=== PATIENT | male | born 1995 | race Caucasian/White ===

== ENCOUNTER 2018-04-07 15:01 | Inpatient (IN) ==
[2018-04-07 16:41] LABS: Baso % (Auto) 0.4 % (0.0-2.0); Eos % (Auto) 0.2 % (0.0-4.0); Hemoglobin 14.9 gm/dL (13.0-17.0); Lymph # (Auto) 1.4 th/mm3 (1.0-4.8); Lymph % (Auto) 14.8 % (9.0-44.0); Mean Corpuscular HGB Conc 34.6 % (32.0-36.0); Mean Corpuscular Hemoglobin 31.9 pg (27.0-34.0); Mean Corpuscular Volume 92.4 fL (80.0-100.0); Mean Platelet Volume 10.4 fL (7.0-11.0); Mono # (Auto) 0.6 th/mm3 (0.0-0.9); Mono % (Auto) 6.2 % (0.0-8.0); Neut # (Auto) 7.7 th/mm3 (1.8-7.7); Neut % (Auto) 78.4 % (16.0-70.0); Platelet Count 184 th/mm3 (150-450); Red Blood Count 4.66 mil/mm3 (4.50-5.90); Red Cell Distribution Width 13.3 % (11.6-17.2); White Blood Count 9.8 th/mm3 (4.0-11.0)
[2018-04-07 17:00] LABS: Albumin 4.4 g/dL (3.4-5.0); Anion Gap 8 meq/L (5-15); Aspartate Aminotransferase 12 U/L (15-37); Blood Urea Nitrogen 15 mg/dL (7-18); Calcium 9.3 mg/dL (8.5-10.1); Carbon Dioxide 24.4 meq/L (21.0-32.0); Chloride 109 meq/L (98-107); Glomerular Filtration Rate Greater Than 89 mL/min (>89); Glucose,Random 108 mg/dL (74-106); Potassium 3.7 meq/L (3.5-5.1); Sodium 141 meq/L (136-145)
[2018-04-07 17:12] LABS: Alanine Aminotransferase 20 U/L (12-78); Alkaline Phosphatase 55 U/L (45-117); Thyroid Stimulating Hormone 0.691 uIU/mL (0.358-3.740); Total Protein 7.6 g/dL (6.4-8.2)
--- NOTE | 2018-04-07 18:31 | ED ---
HPI General Chief Complaint: Psychiatric Symptoms Stated Complaint: Psych Eval/NSPD Time Seen by Provider: 04/07/18 17:58 Source: patient Mode of arrival: ambulatory Limitations: no limitations History of Present Illness HPI Narrative: 22-year-old male, with history of bipolar disorder, presents to the emergency department under Frias act. According to the Frias act report the patient was setting multiple messages to his family telling them to enjoy the money and that he was going to kill himself. He was found in a hotel with 2 guns and his medication. He had no plan or intention to use the guns to do anything to himself. His plan was to overdose on his mood stabilizers. He reports suicidal ideation. Reports history of suicidal attempts by overdosing. Denies homicidal ideation. Denies auditory or visual hallucinations. Reports marijuana use. Denies other illicit drug use. Denies tobacco use. Reports alcohol use daily. Symptoms are moderate to severe in severity. Says this symptoms are aggravated by being part of his sickness. Onset unknown. Duration most likely chronic. No treatments tried. History of bipolar disorder. Denies other significant past medical history. No known allergies. Primary CARE providers Dr. Gale in [place]. Has no other medical complaints. Denies chest pain, shortness of breath, abdominal pain, nausea, vomiting, change in urine or stool. No other modifying factors or associated signs and symptoms. Related Data Home Medications Medication Instructions Recorded Confirmed divalproex [Depakote] 500 mg PO BID 04/07/18 04/07/18 levothyroxine 25 mcg PO DAILY 04/07/18 04/07/18 quetiapine 25 mg PO HS 04/07/18 04/07/18 Allergies Allergy/AdvReac Type Severity Reaction Status Date / Time No Known Allergies Allergy Verified 04/07/18 15:40 Review of Systems ROS: all other systems reviewed are negative [facility] Medical History Medical History Bipolar disorder (Acute) Hypothyroidism (Acute) Surgical History Surgical History History of surgery on arm (Acute) Social History Social History Substance History: Active Abuse Second Hand Smoke Exposure: No Smoking Status: Never smoker How Often Do You Have a Drink Containing Alcohol: 2 to 3 times a week Recent Travel in [facility] [place] within the Last 8 Weeks: No Recent Out of Country Travel within the Last 8 Weeks: No Substance Abuse Detail Marijuana: Substance Use Status: Active Route Used Substance Abuse: Inhalation Last Used: 04/07/18 Immunization History Tetanus Immunization: Unsure Exam Narrative Exam Narrative: GENERAL: Well-nourished, well-developed male patient, in no acute distress SKIN: Warm and dry. HEAD: Atraumatic. Normocephalic. EYES: Pupils equal and round. ENT: Mucosa pink and moist. NECK: Supple. Trachea midline. CARDIOVASCULAR: Regular rate and rhythm. No murmur appreciated. RESPIRATORY: No accessory muscle use. Clear to auscultation. Breath sounds equal bilaterally. GASTROINTESTINAL: Abdomen soft, non-tender, nondistended. Hepatic and splenic margins not palpable. Bowel sounds are active 4 quadrants. MUSCULOSKELETAL: No obvious deformities. No clubbing. No cyanosis. No edema. NEUROLOGICAL: Awake and alert. Oriented 3. No obvious cranial nerve deficits. Motor grossly within normal limits. Normal speech. Moves all extremities. 5/5 strength to all extremities. PSYCHIATRIC: No delusional thought processes. No hallucinations. Course Initial Documented Vital Signs Temperature 98.3 F 04/07/18 15:07 Pulse Rate 78 04/07/18 15:07 Blood Pressure 125/70 04/07/18 15:07 Pulse Oximetry 95 04/07/18 15:07 Last Documented Vital Signs Temperature 98.2 F 04/10/18 05:00 Pulse Rate 56 L 04/10/18 05:00 Respiratory Rate 16 04/10/18 05:00 Blood Pressure 106/60 04/10/18 05:00 Pulse Oximetry 98 04/10/18 05:00 Medical Decision Making [facility] Narrative Medical decision making narrative: Patient presents under a Frias act. Physical examination and vital signs are essentially unremarkable. Patient has no medical complaints to report. Psych screen has been ordered. If the laboratory results are unremarkable, the patient will be medically cleared for psychiatric evaluation and disposition. Medical Screen Exam Complete: Yes Emergency Medical Condition: Yes Differential Diagnosis Differential Diagnosis: Suicidal ideation, suicidal threat, bipolar disorder, medical clearance for psychiatric evaluation Lab Data Result diagrams: 04/07/18 15:12 04/09/18 08:36 Lab Results 04/07/18 04/07/18 04/07/18 Range/Units 15:12 15:12 15:12 WBC 9.8 (4.0-11.0) th/mm3 RBC 4.66 (4.50-5.90) mil/mm3 Hgb 14.9 (13.0-17.0) gm/dL Hct 43.0 (39.0-51.0) % MCV 92.4 (80.0-100.0) fL MCH 31.9 (27.0-34.0) pg MCHC 34.6 (32.0-36.0) % RDW 13.3 (11.6-17.2) % Plt Count 184 (150-450) th/mm3 MPV 10.4 (7.0-11.0) fL Neut % (Auto) 78.4 H (16.0-70.0) % Lymph % (Auto) 14.8 (9.0-44.0) % Waldo % (Auto) 6.2 (0.0-8.0) % Eos % (Auto) 0.2 (0.0-4.0) % Baso % (Auto) 0.4 (0.0-2.0) % Neut # (Auto) 7.7 (1.8-7.7) th/mm3 Lymph # (Auto) 1.4 (1.0-4.8) th/mm3 [place] # (Auto) 0.6 (0.0-0.9) th/mm3 Eos # (Auto) 0.0 (0.0-0.4) th/mm3 Baso # (Auto) 0.0 (0.0-0.2) th/mm3 WBC Differential . Differential Comment Auto diff final Sodium 141 (136-145) meq/L Potassium 3.7 (3.5-5.1) meq/L Chloride 109 H (98-107) meq/L Carbon Dioxide 24.4 (21.0-32.0) meq/L Anion Gap 8 (5-15) meq/L BUN 15 (7-18) mg/dL Creatinine 0.96 (0.60-1.30) mg/dL Estimated GFR Greater than 89 (>89) mL/min Random Glucose 108 H (74-106) mg/dL Hemoglobin A1c (4.3-6.0) % Calcium 9.3 (8.5-10.1) mg/dL Total Bilirubin 0.5 (0.2-1.0) mg/dL AST 12 L (15-37) U/L ALT 20 (12-78) U/L Alkaline Phosphatase 55 (45-117) U/L Total Protein 7.6 (6.4-8.2) g/dL Albumin 4.4 (3.4-5.0) g/dL Triglycerides (42-150) mg/dL Cholesterol (120-200) mg/dL LDL Cholesterol, Calc (0-99) mg/dL HDL Cholesterol (40.0-60.0) mg/dL Cholesterol/HDL Ratio Ratio TSH 0.691 (0.358-3.740) uIU/mL Salicylates Less than 1.7 L (2.8-20.0) mg/dL Urine Opiates Screen (Neg) Acetaminophen Less than 2.0 L (10.0-30.0) mcg/mL Ur Barbiturates Screen (Neg) Valproic Acid (50-100) mcg/mL Ur Amphetamines Screen (Neg) U Benzodiazepines Scrn (Neg) Urine Cocaine Screen (Neg) U Cannabinoids Screen (Neg) Serum Alcohol Less than 3 (0-5) mg/dL 04/07/18 04/08/18 04/09/18 Range/Units 20:10 17:25 08:36 WBC (4.0-11.0) th/mm3 RBC (4.50-5.90) mil/mm3 Hgb (13.0-17.0) gm/dL Hct (39.0-51.0) % MCV (80.0-100.0) fL MCH (27.0-34.0) pg MCHC (32.0-36.0) % RDW (11.6-17.2) % Plt Count (150-450) th/mm3 MPV (7.0-11.0) fL Neut % (Auto) (16.0-70.0) % Lymph % (Auto) (9.0-44.0) % [place] % (Auto) (0.0-8.0) % Eos % (Auto) (0.0-4.0) % Baso % (Auto) (0.0-2.0) % Neut # (Auto) (1.8-7.7) th/mm3 Lymph # (Auto) (1.0-4.8) th/mm3 [place] # (Auto) (0.0-0.9) th/mm3 Eos # (Auto) (0.0-0.4) th/mm3 Baso # (Auto) (0.0-0.2) th/mm3 WBC Differential Differential Comment Sodium 139 (136-145) meq/L Potassium 3.5 (3.5-5.1) meq/L Chloride 105 (98-107) meq/L Carbon Dioxide 24.1 (21.0-32.0) meq/L Anion Gap 10 (5-15) meq/L BUN 16 (7-18) mg/dL Creatinine 1.03 (0.60-1.30) mg/dL Estimated GFR 89 (>89) mL/min Random Glucose 127 H (74-106) mg/dL Hemoglobin A1c (4.3-6.0) % Calcium 9.1 (8.5-10.1) mg/dL Total Bilirubin (0.2-1.0) mg/dL AST (15-37) U/L ALT (12-78) U/L Alkaline Phosphatase (45-117) U/L Total Protein (6.4-8.2) g/dL Albumin (3.4-5.0) g/dL Triglycerides 153 H (42-150) mg/dL Cholesterol 203 H (120-200) mg/dL LDL Cholesterol, Calc 122 H (0-99) mg/dL HDL Cholesterol 50.3 (40.0-60.0) mg/dL Cholesterol/HDL Ratio 4.03 Ratio TSH (0.358-3.740) uIU/mL Salicylates (2.8-20.0) mg/dL Urine Opiates Screen Neg (Neg) Acetaminophen (10.0-30.0) mcg/mL Ur Barbiturates Screen Neg (Neg) Valproic Acid Less than 3 L (50-100) mcg/mL Ur Amphetamines Screen Neg (Neg) U Benzodiazepines Scrn Neg (Neg) Urine Cocaine Screen Neg (Neg) U Cannabinoids Screen Pos H (Neg) Serum Alcohol (0-5) mg/dL 04/09/18 Range/Units 08:36 WBC (4.0-11.0) th/mm3 RBC (4.50-5.90) mil/mm3 Hgb (13.0-17.0) gm/dL Hct (39.0-51.0) % MCV (80.0-100.0) fL MCH (27.0-34.0) pg MCHC (32.0-36.0) % RDW (11.6-17.2) % Plt Count (150-450) th/mm3 MPV (7.0-11.0) fL Neut % (Auto) (16.0-70.0) % Lymph % (Auto) (9.0-44.0) % Wal[place] % (Auto) (0.0-8.0) % Eos % (Auto) (0.0-4.0) % Baso % (Auto) (0.0-2.0) % Neut # (Auto) (1.8-7.7) th/mm3 Lymph # (Auto) (1.0-4.8) th/mm3 [place] # (Auto) (0.0-0.9) th/mm3 Eos # (Auto) (0.0-0.4) th/mm3 Baso # (Auto) (0.0-0.2) th/mm3 WBC Differential Differential Comment Sodium (136-145) meq/L Potassium (3.5-5.1) meq/L Chloride (98-107) meq/L Carbon Dioxide (21.0-32.0) meq/L Anion Gap (5-15) meq/L BUN (7-18) mg/dL Creatinine (0.60-1.30) mg/dL Estimated GFR (>89) mL/min Random Glucose (74-106) mg/dL Hemoglobin A1c 5.1 (4.3-6.0) % Calcium (8.5-10.1) mg/dL Total Bilirubin (0.2-1.0) mg/dL AST (15-37) U/L ALT (12-78) U/L Alkaline Phosphatase (45-117) U/L Total Protein (6.4-8.2) g/dL Albumin (3.4-5.0) g/dL Triglycerides (42-150) mg/dL Cholesterol (120-200) mg/dL LDL Cholesterol, Calc (0-99) mg/dL HDL Cholesterol (40.0-60.0) mg/dL Cholesterol/HDL Ratio Ratio TSH (0.358-3.740) uIU/mL Salicylates (2.8-20.0) mg/dL Urine Opiates Screen (Neg) Acetaminophen (10.0-30.0) mcg/mL Ur Barbiturates Screen (Neg) Valproic Acid (50-100) mcg/mL Ur Amphetamines Screen (Neg) U Benzodiazepines Scrn (Neg) Urine Cocaine Screen (Neg) U Cannabinoids Screen (Neg) Serum Alcohol (0-5) mg/dL Discharge Plan Discharge Disposition Patient Disposition: 30 Still Patient Discharge Condition Condition: Stable Physicians Team ED Provider: Milo Muniz ED Midlevel Provider: María Isaac Primary Care Provider: UNKNOWN, Attending Provider: Brian Rodriguez Other Providers: Brian Rodriguez Status ED Status: Left Department Discharge Information Discharge Date/Time: 04/08/18 15:05
[2018-04-07 20:53] LABS: Amphetamine Screen,Urine Neg (Neg); Barbiturate Screen,Urine Neg (Neg); Cannabinoid Screen,Urine Pos (Neg); Cocaine Screen,Urine Neg (Neg)
[2018-04-07 21:00] LABS: Opiate Screen,Urine Neg (Neg)
[2018-04-08] MEDS ORDERED: Aluminum/Magnesium/Simethacone Susp 30 ML UDC PO PRN (09:52)
[2018-04-08] MEDS ORDERED: Bisacodyl 10 MG Supp RECTAL PRN (09:52)
--- NOTE | 2018-04-08 16:25 | P.HPPSY ---
Provisional Diagnosis Admission Date: April 08, 2018 09:52 Mico I.: Bipolar type II, cannabis use disorder Competence Certification of Person's Competence To Provide Express and Informed Consent I have personally examined Jarek Ojeda, a person being served at [facility] on, April 08, 2018 1610. Express and informed consent means consent voluntarily given in writing, by a competent person, after sufficient explanation and disclosure of the subject matter involved to enable the person to make a knowing and willful decision without any element of force, fraud, deceit, duress, or other form of constraint or coercion. This person is 18 years of age or older, is not now known to be incompetent to consent to treatment with a guardian advocate, and does not have a health care surrogate or proxy currently making medical treatment decisions. I have found this person to be one of the following: [] Competent to provide express and informed consent, as defined above, for voluntary admission to this facility and is competent to provide express and informed consent for treatment. He/she has the consistent capacity to make well reasoned, willful, and knowing decisions concerning his or her medical or mental health treatment. The person fully and consistently understands the purpose of the admission for examination/placement and is fully capable of personally exercising all rights assured [place] [] Incompetent to provide express and informed consent to voluntary admission, and this is incompetent to provide express and informed consent to treatment. The person must be transferred to involuntary status and a petition for a guardian advocate filed with the Circuit Court. [x] Refusing to provide express and informed consent to voluntary admission but is competent to provide express and informed consent for treatment. The person must be discharged or transferred to involuntary status. Form shall be completed within 24 hours of a person's arrival at the receiving facility and filed in the clinical record of each person: 1. Admitted on a voluntary basis 2. Permitted to provide express and informed consent to his/her own treatment 3. Allowed to transfer from involuntary to voluntary status 4. Prior to permitting a person to consent to his or her own treatment after having been previously found incompetent to consent to treatment. History of Present Illness Capacity: Has capacity History of Present Illness: The patient is a 22-year-old man, domiciled with his parents in [place] , single, employed, with a psychiatric history of bipolar disorder, akathisia, previous psychiatric hospitalizations, suicidal attempt by overdosing, last psychiatric hospitalization was in 2017 in [facility], he is on Depakote 500 mg twice daily, Seroquel 100 mg at bedtime, medical history hypothyroidism, who presents to the emergency department under Frias act. According to the [employer] act report the patient was setting multiple messages to his family telling them to enjoy the money and that he was going to kill himself. He was found in a hotel with 2 guns and his medication ready to commit suicide. Psychiatric evaluation the patient is calm, cooperative, he says that he has been having frequent mood swings, he has been feeling depressed, very anxious, he has stopped using his medications about a month ago. He had no plan or intention to use the guns to do anything to himself. His plan was to overdose on his mood stabilizers. He says that he feels very unstable, he needs to go back to his medications, has been no functioning at the level he used to, he has been feeling depressed, no sleeping at night, and thinking and committing suicide. The patient does not identify an acute stress for his depression, he says that he has been having this depression and mood swings spontaneously no trigger. The patient is fully oriented x3, no attention deficit. No loosening of associations, no delusions, no kari, no ideas of reference, or elicited during this evaluation. PPHx: bipolar disorder, akathisia, previous psychiatric hospitalizations, suicidal attempt by overdosing, last psychiatric hospitalization was in 2017 in [facility], he is on Depakote 500 mg twice daily, Seroquel 100 mg at bedtime, PMHx: medical history hypothyroidism, Substance Hx: Daily use of marijuana Family Hx: No family psychiatric history Social Hx: The patient was born and raised in [place], he lives in [place], work as an social insurance specialist, highest level of education is high school - Inpatient Certification I certify that the inpatient services were ordered in accordance with Medicare regulations governing the order. This includes certification that hospital inpatient services are reasonable and necessary and in the case of services not specified as inpatient-only under 42 CFR 419.22(n), that they are appropriately provided as inpatient services in accordance to with the 2-midnight benchmark under 43 CFR 412.3(e) I certify that inpatient psychiatric hospital services are medically necessary. Evaluation and treatment and/or diagnostic testing are expected to improve the patient's condition. The patient needs on a daily basis, active treatment furnished directly by or requiring the supervision of inpatient psychiatric facility personnel. Estimated Total Length of Stay (Days): 7 Plans for Post Hospital Care: Home Review of Systems All other systems reviewed negative except as stated in HPI Psychiatric: Reports depression, Reports hopelessness, Reports irritability, Reports thoughts of hurting/killing yourself [facility] - History History Provided By: Patient - Medical History Medical History: Medical History (Last Reviewed 04/07/18 @ 18:30 by LUBNA Marks) Bipolar disorder Hypothyroidism - Surgical History Surgical History: Surgical History (Last Updated 04/07/18 @ 15:09 by Eileen Silva) History of surgery on arm - Tobacco History Smoking Status: Never smoker - Alcohol History How Often Do You Have a Drink Containing Alcohol: 4 or more times a week - Substance Use History Substance History: Active Abuse - Substance Use Type Marijuana Status: Active Route Used: Inhalation Last Used: 04/07/18 - Travel History Recent Travel in the [place] Within the Last 8 Weeks: No Recent Travel Out of the Country Within the Last 8 Weeks: No - Immunization History Tetanus Immunization: Unsure Medications and Allergies Active Medications: Active Medications Al Hydrox/Mg Hydrox/Simethicone (Mag-Al Plus Susp Liq) 30 ml PO Q6H PRN PRN Reason: DYSPEPSIA Al Hydroxide/Mg Hydroxide (Milk Of Magnesia Liq) 30 ml PO Q12H PRN PRN Reason: Mild Constipation Bisacodyl (Dulcolax Supp) 10 mg RECTAL DAILY PRN PRN Reason: SEVERE CONSITIPATION Divalproex Sodium (Depakote Dr) 500 mg PO BID AMELIA Lactulose (Lactulose Liq) 30 ml PO DAILY PRN PRN Reason: SEVERE CONSITIPATION Levothyroxine Sodium (Synthroid) 25 mcg PO DAILY@0600 AMELIA Quetiapine Fumarate (Seroquel) 25 mg PO HS AMELIA Senna/Docusate Sodium (Radha-Colace) 1 tab PO BID AMELIA Sennosides (Senokot) 17.2 mg PO Q12H PRN PRN Reason: Moderate Constipation Allergies Allergy/AdvReac Type Severity Reaction Status Date / Time No Known Allergies Allergy Verified 04/07/18 15:40 Home Medications Medication Instructions Recorded Confirmed Type divalproex [Depakote] 500 mg PO BID 04/07/18 04/07/18 History levothyroxine 25 mcg PO DAILY 04/07/18 04/07/18 History quetiapine 25 mg PO HS 04/07/18 04/07/18 History Results - Labs CBC & Chem 7: 04/07/18 15:12 04/07/18 15:12 Labs: Laboratory Results - last 24 hr 04/07/18 04/07/18 04/07/18 15:12 15:12 15:12 WBC 9.8 RBC 4.66 Hgb 14.9 Hct 43.0 MCV 92.4 MCH 31.9 MCHC 34.6 RDW 13.3 Plt Count 184 MPV 10.4 Neut % (Auto) 78.4 H Lymph % (Auto) 14.8 [place] % (Auto) 6.2 Eos % (Auto) 0.2 Baso % (Auto) 0.4 Neut # (Auto) 7.7 Lymph # (Auto) 1.4 [place] # (Auto) 0.6 Eos # (Auto) 0.0 Baso # (Auto) 0.0 WBC Differential . Differential Comment Auto diff final Sodium 141 Potassium 3.7 Chloride 109 H Carbon Dioxide 24.4 Anion Gap 8 BUN 15 Creatinine 0.96 Estimated GFR Greater than 89 Random Glucose 108 H Calcium 9.3 Total Bilirubin 0.5 AST 12 L ALT 20 Alkaline Phosphatase 55 Total Protein 7.6 Albumin 4.4 TSH 0.691 Salicylates Less than 1.7 L Urine Opiates Screen Acetaminophen Less than 2.0 L Ur Barbiturates Screen Ur Amphetamines Screen U Benzodiazepines Scrn Urine Cocaine Screen U Cannabinoids Screen Serum Alcohol Less than 3 04/07/18 20:10 WBC RBC Hgb Hct MCV MCH MCHC RDW Plt Count MPV Neut % (Auto) Lymph % (Auto) [place] % (Auto) Eos % (Auto) Baso % (Auto) Neut # (Auto) Lymph # (Auto) [place] # (Auto) Eos # (Auto) Baso # (Auto) WBC Differential Differential Comment Sodium Potassium Chloride Carbon Dioxide Anion Gap BUN Creatinine Estimated GFR Random Glucose Calcium Total Bilirubin AST ALT Alkaline Phosphatase Total Protein Albumin TSH Salicylates Urine Opiates Screen Neg Acetaminophen Ur Barbiturates Screen Neg Ur Amphetamines Screen Neg U Benzodiazepines Scrn Neg Urine Cocaine Screen Neg U Cannabinoids Screen Pos H Serum Alcohol Exam Vital signs: Vital Signs 04/07/18 17:56 04/07/18 17:57 04/07/18 23:00 Temperature 98.1 F 98.1 F Pulse Rate 73 73 60 Respiratory Rate 16 Blood Pressure 150/65 H 150/65 H 91/64 L Pulse Oximetry 98 98 100 04/08/18 06:24 04/08/18 11:39 04/08/18 15:54 Temperature 98.1 F 98.0 F Pulse Rate 54 L 54 L 62 Respiratory Rate 16 18 18 Blood Pressure 106/55 L 122/71 133/90 Pulse Oximetry 100 98 97 Intake & Output 04/07/18 04/08/18 04/08/18 18:59 06:59 18:59 Weight 58.967 kg Narrative: No tremors, no EPS, no psychomotor agitation or retardation, no gait disturbance - Constitutional no acute distress - Routine HEENT Exam Head: Present: normocephalic, atraumatic Eye: Present: EOMI, PERRL ENT: Present: mucous membranes moist Mental Status Examination Appearance: Appropriate Consciousness: Alert Orientation: x4 Motor Activity: Normal gait Speech: Unremarkable Language: Adequate Fund of Knowledge: Adequate Attention and Concentration: Adequate Memory: Unremarkable Mood: Sad Affect: Appropriate, Sad Thought Process & Associations: Intact Thought Content: Appropriate Hallucination Type: None Delusion Type: None Suicidal Ideation: Yes Suicidal Plan: No Suicidal Intention: No Homicidal Ideation: No Homicidal Plan: No Homicidal Intention: No Insight: Poor Judgment: Poor Assessment and Plan - Assessment (1) Bipolar depression Code(s): F31.30 - Bipolar disorder, current episode depressed, mild or moderate severity, unspecified Status: Acute - Plan Plan: Psychiatric evaluation today I find a patient that is cooperative, but he seems to be emotionally this regulated. He reports that he has been having frequent mood swings, he has been depressed, no enjoying life, with decreased functionality, irritability, lack of sleep and persistent suicidal ideation to the point that the patient has tried to commit suicide by overdosing in a hotel room. The patient reports that he has stopped his medications with a concern of increasing weight. He has a psychiatric history of bipolar disorder, multiple psychiatric hospitalizations, suicide attempts, at this moment he has an increased risk of danger to self, he will be admitted in psychiatry for stabilization and safety. I will restart his Depakote 250 mg twice daily, will order Depakote levels. Consider Abilify as a mood stabilizer weight neutral. Extensive support, motivation and psychoeducation provided. Patient will be transferred to 2600 unit. Justification for Continued Inpatient Stay: For psychiatric admission.
[2018-04-08] MEDS ORDERED: QUEtiapine 25 MG Tablet PO SCH (21:00)
[2018-04-08] MEDS: Divalproex 500 MG DR Tablet PO SCH (21:24)
[2018-04-08] MEDS: Senna/Docusate Sodium 8.6/50 MG Tablet PO SCH (21:24)
[2018-04-09] MEDS: Divalproex 500 MG DR Tablet PO SCH ×2 (08:46→21:52)
[2018-04-09] MEDS: Senna/Docusate Sodium 8.6/50 MG Tablet PO SCH ×2 (08:47→22:28)
[2018-04-09 10:07] LABS: Calcium 9.1 mg/dL (8.5-10.1); Carbon Dioxide 24.1 meq/L (21.0-32.0); Potassium 3.5 meq/L (3.5-5.1)
[2018-04-09 10:27] LABS: Chol/HDL Ratio 4.03 Ratio; HDL Cholesterol 50.3 mg/dL (40.0-60.0)
--- NOTE | 2018-04-09 13:34 | P.PNPSY ---
Subjective Remarks: This note serves as my second opinion for involuntary psychiatric hospitalization. I have discussed with patient that I will be assuming care of his case and am also seeing him for a second opinion. Patient seen and examined with nurse. Chart reviewed. Case discussed with nursing staff. On my examination today, the patient reports that he discontinued his psychotropic medications secondary to weight gain, which he attributes to Seroquel. He says that his mood has been worsening over the last month with onset of suicidal ideation with plan within the last week or so. He denies ongoing suicidal or homicidal ideation at this time. No psychotic material. Mood remains depressed. He reports a history of bipolar disorder, type II, diagnosed 1 year ago. He reports that he has done well with Seroquel and Depakote in the past. He reports that he previously was in [facility] and would like to return, perhaps to residential treatment there. He endorses 1 previous suicide attempt by overdose about 6 years ago. He smokes cannabis at bedtime and is a social drinker. He reports that the firearms that he had with him were secured by the [place] [employer], although he does note that he has a concealed carry permit. No side effects from medications. No physical complaints. Vital Signs Temp Pulse Resp BP Pulse Ox 04/09/18 06:08 98.1 F 58 L 94/50 L 98 04/08/18 18:18 97.2 F L 70 18 124/64 96 04/08/18 15:54 98.0 F 62 18 133/90 97 Intake and Output 04/08/18 04/09/18 04/09/18 22:59 06:59 14:59 Other: Weight 61.3 kg 88.1 kg Weight On Admission 61.235 kg Laboratory Tests 04/07/18 04/07/18 04/07/18 15:12 15:12 20:10 WBC 9.8 Hgb 14.9 Plt Count 184 Sodium Potassium Chloride Carbon Dioxide BUN Creatinine Estimated GFR Random Glucose AST 12 L ALT 20 Alkaline Phosphatase 55 TSH 0.691 U Cannabinoids Screen Pos H Serum Alcohol Less than 3 04/09/18 08:36 WBC Hgb Plt Count Sodium 139 Potassium 3.5 Chloride 105 Carbon Dioxide 24.1 BUN 16 Creatinine 1.03 Estimated GFR 89 Random Glucose 127 H AST ALT Alkaline Phosphatase TSH U Cannabinoids Screen Serum Alcohol Labs reviewed. Review of Systems All other systems reviewed negative except as stated in HPI Mental Status Examination Appearance: Appropriate Consciousness: Alert Orientation: x4 Motor Activity: Normal gait, Other (No motor abnormalities noted) Speech: Unremarkable Language: Adequate Fund of Knowledge: Adequate Attention and Concentration: Adequate Memory: Unremarkable Mood: Other (Depressed) Affect: Appropriate Thought Process & Associations: Intact, Logical, Linear Thought Content: Appropriate Hallucination Type: None Delusion Type: None Suicidal Ideation: No Suicidal Plan: No Suicidal Intention: No Homicidal Ideation: No Homicidal Plan: No Homicidal Intention: No Insight: Adequate Judgment: Adequate Assessment and Plan - Assessment (1) Severe depressed bipolar II disorder without psychotic features Code(s): F31.81 - Bipolar II disorder Status: Acute - Plan Plan: After thorough explanation of voluntary admission status versus involuntary status, including the right of release, patient agrees to remain on the inpatient psychiatric unit voluntarily. I election judge that patient is capacitated to consent for voluntary admission. He would like to go to [facility] for residential treatment, and counselor will work on this. Lengthy discussion with patient regarding pharmacotherapeutic options for bipolar depression, and I did suggest selecting a more weight neutral agent. Patient would like to continue Seroquel/Depakote for now. R/B/A d/w pt. While awaiting transfer to [facility], I will titrate patient's Seroquel to 50mg qHS for mood stabilization and continue Depakote as ordered with plans to obtain a Depakote level after the appropriate interval. I will add Ativan as needed for anxiety and Benadryl as needed for sleep. E-FORCSE report reviewed for the Ativan. Continue to monitor on the inpatient unit. Continue other medications and care as ordered. Justification for Continued Inpatient Stay: Medication changes. Monitoring for impairment in safety. Discharge Planning: ?To residential at [facility]. Request Healthcare Surrogate/Guardian Advocate?: No
[2018-04-09] MEDS: LORazepam 0.5 MG Tablet PO PRN ×2 (15:47→22:28)
[2018-04-09 16:06] LABS: Hemoglobin A1c 5.1 % (4.3-6.0)
[2018-04-09] MEDS ORDERED: QUEtiapine 25 MG Tablet PO SCH (21:00)
--- NOTE | 2018-04-10 09:44 | P.PNPSY ---
Subjective Remarks: Patient seen and examined with nurse. Chart reviewed. Case discussed with nursing staff who reports patient has been social and slept well. Case discussed in treatment team. Counselor reports that the patient may go to [facility] Friday. On my examination today, the patient says that his mood is improved and he feels "normal." He denies suicidal ideation. Denies AVH. He visited with his mother and father and reports that this went well. He denies side effects from medications besides some mild restless legs, which he says he has experienced in the past with the Seroquel. He does note that he has been on Requip in the past for this issue but does not feel that this side effect is currently severe enough to warrant pharmacologic intervention. No physical complaints. Agreeable to going to residential treatment after the weekend. Vital Signs Temp Pulse Resp BP Pulse Ox 04/10/18 05:00 98.2 F 56 L 16 106/60 98 04/09/18 18:09 98.3 F 60 14 117/71 98 Intake and Output 04/09/18 04/10/18 04/10/18 22:59 06:59 14:59 Intake Total 0 / 0 Balance 0 / 0 Intake: Oral 0 / 0 Laboratory Results - last 24 hr 04/09/18 08:36 Hemoglobin A1c 5.1 Labs reviewed. Review of Systems All other systems reviewed negative except as stated in HPI Mental Status Examination Appearance: Appropriate Consciousness: Alert Orientation: x4 Motor Activity: Normal gait, Other (No abnormal motor movements noted) Speech: Unremarkable Language: Adequate Fund of Knowledge: Adequate Attention and Concentration: Adequate Memory: Unremarkable Mood: Appropriate Affect: Appropriate Thought Process & Associations: Intact, Logical, Linear Thought Content: Appropriate Hallucination Type: None Delusion Type: None Suicidal Ideation: No Suicidal Plan: No Suicidal Intention: No Homicidal Ideation: No Homicidal Plan: No Homicidal Intention: No Insight: Adequate Judgment: Adequate Assessment and Plan - Assessment (1) Severe depressed bipolar II disorder without psychotic features Code(s): F31.81 - Bipolar II disorder Status: Acute - Plan Plan: Titrate Seroquel to 75 mg at bedtime to work towards dose useful for mood stabilization. Continue Depakote as ordered with plans to obtain a Depakote level after the weekend. Continue to monitor on the inpatient unit. Continue other medications and care as ordered. Justification for Continued Inpatient Stay: Medication changes. Risk for decompensation in less restrictive environment. Discharge Planning: Plan for transfer to residential treatment facility after the weekend. Request Healthcare Surrogate/Guardian Advocate?: No
[2018-04-10] MEDS: Divalproex 500 MG DR Tablet PO SCH ×2 (10:11→21:31)
[2018-04-10] MEDS: LORazepam 0.5 MG Tablet PO PRN ×2 (10:11→21:30)
[2018-04-10] MEDS: Senna/Docusate Sodium 8.6/50 MG Tablet PO SCH ×2 (10:13→21:32)
--- NOTE | 2018-04-10 14:26 | P.TTN ---
- Patient Problems Problems: 1. Discharge planning 2. Medication compliance 3. Knowledge deficit 4. Lack of coping skills - Progress Toward Goals Provider Present: Dr. Alec Rodriguez Provider Input: Jennifer- Seroquel has been increased, appears motivated for treatment and is desiring to go to [facility] residential program, Possible dicharge early next week. Nurse Input: Richa- Has been social, parents visited the other day Psychiatric Counselors Present: Salvatore Lazaro Jr., [facility], Ese See, [facility] Psychiatric Therapist Input: 04/10/18 Salvatore- patient has been cooperative Group Spec/RT/OT/GAMEZ Present: Gifty Velazquez, [facility] Group Spec/RT/OT/GAMEZ Input: Gifty- Patient does attend groups and engages - Documentation Teaching Recipient: Patient
--- NOTE | 2018-04-10 21:19 | ECG ---
Date Performed: 04/09/2018 Time Performed: 14:28:18 PTAGE: 22 years EKG: SINUS BRADYCARDIA BORDERLINE ECG NO PREVIOUS TRACING DOCTOR: Jefferson Lynne Interpretating Date/Time 04/10/2018 21:17:55
[2018-04-10] MEDS: QUEtiapine 25 MG Tablet PO SCH (21:32)
[2018-04-11] MEDS: LORazepam 0.5 MG Tablet PO PRN ×2 (08:19→21:25)
[2018-04-11] MEDS: Divalproex 500 MG DR Tablet PO SCH ×2 (08:19→21:25)
[2018-04-11] MEDS: Senna/Docusate Sodium 8.6/50 MG Tablet PO SCH (08:21)
--- NOTE | 2018-04-11 13:08 | P.PNPSY ---
Subjective Remarks: Pt seen and discussed with staff. Chart seen. Pt was admitted for SI. He has been compliant with medications and care. Staff report that he has been irritable and demanding on unit at times. Pt discusses hx of non-compliance with psychiatric medications in the past and detriment that has had on him. He reports recent increase in seroquel has helped with anxiety and mood. No SI/HI Mental Status Examination Appearance: Appropriate Consciousness: Alert Orientation: x4 Motor Activity: Normal gait Speech: Unremarkable Language: Adequate Fund of Knowledge: Adequate Attention and Concentration: Adequate Memory: Unremarkable Mood: Appropriate Affect: Appropriate Thought Process & Associations: Intact, Logical, Linear Thought Content: Appropriate Hallucination Type: None Delusion Type: None Suicidal Ideation: No Suicidal Plan: No Suicidal Intention: No Homicidal Ideation: No Homicidal Plan: No Homicidal Intention: No Insight: Adequate Judgment: Adequate Assessment and Plan - Assessment (1) Severe depressed bipolar II disorder without psychotic features Code(s): F31.81 - Bipolar II disorder Status: Acute - Plan Plan: Continue current tx plan. Justification for Continued Inpatient Stay: risk of decompensation Request Healthcare Surrogate/Guardian Advocate?: No
[2018-04-11] MEDS: QUEtiapine 25 MG Tablet PO SCH (21:25)
[2018-04-12] MEDS: Senna/Docusate Sodium 8.6/50 MG Tablet PO SCH ×2 (04:28→09:22)
[2018-04-12] MEDS: Divalproex 500 MG DR Tablet PO SCH ×2 (09:22→21:08)
[2018-04-12] MEDS: LORazepam 0.5 MG Tablet PO PRN ×2 (10:32→20:12)
--- NOTE | 2018-04-12 13:26 | P.PNPSY ---
Subjective Remarks: Chart reviewed and discussed with nursing staff. Patient states that he was diagnosed with Bipolar II and was taking his medications faithfully. Then he stopped the medications and was sent to [facility]. He went through the cycle again and this time felt suicidal. Per the nursing staff the plan is to discharge him tomorrow and he will be returning to [facility]. He lives in [place] outside of [facility] and has supportive family and friends. He is sleeping and eating well. Voices no concerns. Denies SI/HI. Review of Systems All other systems reviewed negative except as stated in HPI Mental Status Examination Appearance: Appropriate Consciousness: Alert Orientation: x4 Motor Activity: Normal gait Speech: Unremarkable Language: Adequate Fund of Knowledge: Adequate Attention and Concentration: Adequate Memory: Unremarkable Mood: Appropriate Affect: Appropriate Thought Process & Associations: Intact, Logical, Linear Thought Content: Appropriate Hallucination Type: None Delusion Type: None Suicidal Ideation: No Suicidal Plan: No Suicidal Intention: No Homicidal Ideation: No Homicidal Plan: No Homicidal Intention: No Insight: Adequate Judgment: Adequate Assessment and Plan - Assessment (1) Severe depressed bipolar II disorder without psychotic features Code(s): F31.81 - Bipolar II disorder Status: Acute - Plan Plan: Continue current tx plan. Justification for Continued Inpatient Stay: Moving patient to a less restrictive environment may result in his decompensation. Request Healthcare Surrogate/Guardian Advocate?: No
[2018-04-12] MEDS: QUEtiapine 25 MG Tablet PO SCH (21:08)
[2018-04-13 05:31] LABS: Albumin 4.3 g/dL (3.4-5.0)
[2018-04-13 05:33] LABS: Total Protein 7.8 g/dL (6.4-8.2)
[2018-04-13 05:39] VITALS: BP 123/80; PULSE 63; RESP 18; TEMP 97.8; O2SAT 95
[2018-04-13] MEDS: Senna/Docusate Sodium 8.6/50 MG Tablet PO SCH ×2 (06:06→08:33)
[2018-04-13] MEDS: Divalproex 500 MG DR Tablet PO SCH (08:32)
[2018-04-13] MEDS: LORazepam 0.5 MG Tablet PO PRN (09:13)
--- NOTE | 2018-04-13 09:44 | P.DSPSY ---
Psychiatry Discharge Summary Inpatient Psychiatric care?: Yes Advance Directives: No Mental Health Advance Directive: No Health Care Proxy: No - Admission Admission Date: April 08, 2018 09:52 - Admission Diagnosis (1) Bipolar depression Code(s): F31.30 - Bipolar disorder, current episode depressed, mild or moderate severity, unspecified Brief History: The patient is a 22-year-old man, domiciled with his parents in [place] , single, employed, with a psychiatric history of bipolar disorder, akathisia, previous psychiatric hospitalizations, suicidal attempt by overdosing, last psychiatric hospitalization was in 2016 in [facility], he is on Depakote 500 mg twice daily, Seroquel 100 mg at bedtime, medical history hypothyroidism, who presents to the emergency department under CardioMind act. According to the CardioMind act report the patient was setting multiple messages to his family telling them to enjoy the money and that he was going to kill himself. He was found in a hotel with 2 guns and his medication ready to commit suicide. Psychiatric evaluation the patient is calm, cooperative, he says that he has been having frequent mood swings, he has been feeling depressed, very anxious, he has stopped using his medications about a month ago. He had no plan or intention to use the guns to do anything to himself. His plan was to overdose on his mood stabilizers. He says that he feels very unstable, he needs to go back to his medications, has been no functioning at the level he used to, he has been feeling depressed, no sleeping at night, and thinking and committing suicide. The patient does not identify an acute stress for his depression, he says that he has been having this depression and mood swings spontaneously no trigger. The patient is fully oriented x3, no attention deficit. No loosening of associations, no delusions, no kari, no ideas of reference, or elicited during this evaluation. PPHx: bipolar disorder, akathisia, previous psychiatric hospitalizations, suicidal attempt by overdosing, last psychiatric hospitalization was in 2016 in [facility], he is on Depakote 500 mg twice daily, Seroquel 100 mg at bedtime, PMHx: medical history hypothyroidism, Substance Hx: Daily use of marijuana Family Hx: No family psychiatric history Social Hx: The patient was born and raised in [place], he lives in [place], work as an insurance claims supervisor, highest level of education is high school Tobacco Use In Past 30 Days: No How Often Do You Have a Drink Containing Alcohol: 2 to 3 times a week Hospital Course: Patient was admitted to a locked, inpatient psychiatric unit. Appropriate precautions were in place throughout patient's hospital stay. Patient was seen and examined on the unit by psychiatry and also visited by counselor. Psychotropic medications were adjusted. Patient tolerated medication changes well without significant side effects. Patient had improvement in presenting psychiatric symptomatology during the course of his hospital stay. There was no evidence of any suicidality or homicidality on the inpatient unit. There was no evidence of self-care deficit. Working with the patient, counselor has arranged for placement in residential treatment facility. On the day of discharge: Patient seen and examined with nurse. Chart reviewed. Case discussed with nursing staff. No behavioral issues noted overnight. Case discussed with counselor. Patient may go to residential treatment facility today. On my examination today, the patient voices readiness for transfer to residential treatment facility today. He denies any suicidal or homicidal ideation, intent or plan. He does describe some mild residual irritability, but otherwise I can elicit no depressive or hypomanic/manic symptoms. He denies any audiovisual hallucinations. I can elicit no delusional material. He continues to complain of some mild restless legs at night, which he associates with Seroquel, but otherwise he denies side effects from medications. Patient and I discussed his Depakote level of 107, and I note to patient that this is within the accepted therapeutic range for treatment of bipolar disorder, particularly since the patient is experiencing no side effects from this medications or signs of Depakote toxicity. He has no physical complaints. Suicide and violence risk assessment on day of discharge both suggest lower imminent risk, and the patient's level of function is adequate for planned level of care on discharge. It is appropriate at this juncture to transfer the patient to residential treatment facility for ongoing management of his bipolar depression. Outpatient psychiatric follow-up as arranged by that facility on discharge from residential treatment. Patient is also to follow up with primary care. I have counseled the patient to return to the psychiatric emergency room for any concerning symptoms, in particular any suicidal ideation, intent or plan, as part of a general safety plan. - Discharge Discharge Date: 04/13/18 - Discharge Diagnosis (1) Bipolar affective, depress, part remis Diagnosis: Principal Code(s): F31.75 - Bipolar disorder, in partial remission, most recent episode depressed Status: Acute Discharge Disposition: [place] - Discharge Instructions Discharge Diet: Regular Diet Activities You Can Perform: Weight Bearing As Tolerat - Discharge Time <= 30 minutes Mental Status Examination Appearance: Appropriate Consciousness: Alert Orientation: x4 Motor Activity: Normal gait, Other (No hand tremor, no dystonia, no dyskinesia, no other motor abnormalities noted.) Speech: Unremarkable Language: Adequate Fund of Knowledge: Adequate Attention and Concentration: Adequate Memory: Unremarkable Mood: Appropriate, Irritable (Mild) Affect: Appropriate Thought Process & Associations: Intact, Logical, Goal directed, Linear Thought Content: Appropriate Hallucination Type: None Delusion Type: None Suicidal Ideation: No Suicidal Plan: No Suicidal Intention: No Homicidal Ideation: No Homicidal Plan: No Homicidal Intention: No Insight: Adequate Judgment: Adequate Discharge/Advance Care Plan - Results Vital Signs: Last Vital Signs Temp 97.8 F 04/13/18 05:38 Pulse 63 04/13/18 05:38 Resp 18 04/13/18 05:38 BP 123/80 04/13/18 05:38 Pulse Ox 95 04/13/18 05:38 Lab Results: Abnormal Lab Results 04/13/18 04/13/18 04:49 04:49 Total Bilirubin 1.0 Direct Bilirubin 0.2 Indirect Bilirubin 0.8 AST 9 L ALT 23 Alkaline Phosphatase 55 Ammonia Less than 10 L Total Protein 7.8 Albumin 4.3 Valproic Acid 107 H* Laboratory Results Hemoglobin A1c 5.1 % (4.3-6.0) 04/09/18 08:36 Triglycerides 153 mg/dL (42-150) H 04/09/18 08:36 Cholesterol 203 mg/dL (120-200) H 04/09/18 08:36 LDL Cholesterol, Calc 122 mg/dL (0-99) H 04/09/18 08:36 HDL Cholesterol 50.3 mg/dL (40.0-60.0) 04/09/18 08:36 TSH 0.691 uIU/mL (0.358-3.740) 04/07/18 15:12 Valproic Acid 107 mcg/mL (50-100) H* 04/13/18 04:49 Summary of Procedures: None done Pending Results: None - Medications Number of antipsychotic medications at discharge: 1 - Discharge Care Plan Goals to Promote Your Health: * To prevent worsening of your condition and complications * To maintain your health at the optimal level Directions to Meet Your Goals: Take your medications as prescribed Follow your dietary instruction Follow activity as directed Keep your appointments as scheduled Take your immunizations and boosters as scheduled If your symptoms worsen call your PCP, if no PCP go to Urgent Care Center or Emergency Room For 13/01 questions related to your inpatient stay or results of tests pending at discharge, please contact Dr. Brian Rodriguez MD at Smoking is Dangerous to Your Health. Avoid second hand smoking
== END 2018-04-13 10:00 ==
LOC: NEPJ 15:01 → NEDA 04-08 09:52 → H260 04-08 14:48
PROVIDERS: ADMIT Psychiatry & Neurology Psychiatry; ATTEND Psychiatry & Neurology Psychiatry